=== PATIENT | female | born 1995 | race Caucasian/White ===

== ENCOUNTER 2017-04-04 13:04 | Emergency (ER) | payer OTHER ==
[~2017-04-04] VITALS: Ht 157.5 cm; Wt 71.5 kg
[2017-04-04 13:06] VITALS: Ht 157.5 cm; Wt 71.5 kg
[2017-04-04] MEDS ORDERED: KETOROLAC 30 MG INJ IM STA (14:14)
[2017-04-04] MEDS ORDERED: ONDANSETRON (ODT) 4 MG TAB ODT STA (14:14)
[2017-04-04 14:47] LABS: ADD UMIC YES; UR ASCORBIC ACID NEGATIVE (NEGATIVE); UR BACTERIA FEW /HPF (NONE SEEN); UR BILIRUBIN (Dip) NEGATIVE (NEGATIVE); UR BLOOD (Dip) 2+ mg/dL (NEGATIVE); UR CLARITY SLIGHTLY CLOUDY (CLEAR); UR COLOR YELLOW (YELLOW); UR GLUCOSE (Dip) NEGATIVE (NEGATIVE); UR KETONES (Dip) NEGATIVE (NEGATIVE); UR LEUKOCYTE ESTERASE (Dip) NEGATIVE Leu/ul (NEGATIVE); UR MUCUS MANY /HPF (NONE SEEN); UR NITRITE (Dip) NEGATIVE (NEGATIVE); UR RBC 6 /HPF (0-5); UR SPECIFIC GRAVITY (Dip) 1.036 (1.003-1.030); UR SQUAMOUS EPITHELIAL CELL FEW /HPF (FEW); UR TOTAL PROTEIN (Dip) 1+ mg/dl (NEGATIVE); UR UROBILINOGEN (Dip) 2+ mg/dL (NEGATIVE)
[2017-04-04 14:51] LABS: BASOPHILS % 0.4 % (0.0-2.0); EOSINOPHILS # 0.1 10^3/ul (0.0-0.5); HEMATOCRIT 41.4 % (37.0-47.0); HEMOGLOBIN 14.6 g/dl (12.0-16.0); LYMPHOCYTES # 2.1 10^3/ul (0.8-2.9); LYMPHOCYTES % 23.5 % (15.0-51.0); MEAN CORPUSCULAR HEMOGLOBIN 30.9 pg (29.0-33.0); MEAN CORPUSCULAR HGB CONC 35.3 g/dl (32.0-37.0); MEAN CORPUSCULAR VOLUME 87.5 fl (82.0-101.0); MEAN PLATELET VOLUME 10.4 fl (7.4-10.4); MONOCYTE # 0.6 10^3/ul (0.3-0.9); MONOCYTES % 6.4 % (0.0-11.0); NEUTROPHILS % 68.5 % (39.0-77.0); PLATELET COUNT 256 10^3/UL (140-415); RED BLOOD COUNT 4.73 10^6/ul (4.20-5.40); RED CELL DISTRIBUTION WIDTH 12.1 % (11.5-14.5)
[2017-04-04] MEDS ORDERED: IBUP-1542 PO (15:14)
--- NOTE | 2017-04-04 15:21 | ERD ---
ER Documentation Chief Complaint Date/Time DATE: 04/04/17 TIME: 15:16 Chief Complaint pelvic pain since 11 years old,has fibroids, no vomiting,ist day on menstru HPI Patient is a 21-year-old female with a past medical history of fibroids who presents to the emergency department for concerns of pelvic pain and vaginal bleeding. Patient reports crampy pelvic pain with her periods for the last 10 years. Patient states that she is currently on her period, first day. Patient reports heavy bleeding. She states she uses 6 pads and tampons per day. Patient denies any fevers or chills. Patient does report nausea. Denies any upper abdominal pain, fever, chills, dizziness, diarrhea, chest pain, shortness breath or LOC. Patient denies any recent travel. Patient states that she is seeing a meat passer for symptoms however she is not been placed on any contraceptive medication yet. ROS All systems reviewed and are negative except as per history of present illness. Medications Home Meds Active Scripts Ibuprofen* (Motrin*) 600 Mg Tab, 600 MG PO Q6, #30 TAB Prov:MATIAS HOOKS PA-C 04/04/17 PMhx/Soc History of Surgery: No Anesthesia Reaction: No Hx Neurological Disorder: No Hx Respiratory Disorders: No Hx Cardiac Disorders: No Hx Psychiatric Problems: No Hx Miscellaneous Medical Probl: Yes (FIBRIODS) Hx Alcohol Use: No Hx Substance Use: No Hx Tobacco Use: No Smoking Status: Never smoker Physical Exam Vitals Vital Signs Date Time Temp Pulse Resp B/P Pulse Ox O2 Delivery O2 Flow Rate FiO2 04/04/17 13:06 98.6 85 18 131/80 99 Physical Exam GENERAL: Well-developed, well-nourished female. Appears in no acute distress. Speaking in full sentences. HEAD: Normocephalic, atraumatic. EYES: Pupils are equally reactive bilaterally. EOMs grossly intact. No conjunctival erythema. No Conjunctival pallor ENT: Moist mucous membranes. No uvula deviation. No kissing tonsils. NECK: Supple. No meningismus. Normal range of motion of the neck. LUNG: Clear to auscultation bilaterally. No rhonchi, wheezing, rales or coarse breath sounds. HEART: Regular rate and rhythm. No murmurs, rubs or gallops. ABDOMEN: . Soft, and nondistended. Tender to palpation in the suprapubic region. Positive bowel sounds in all four quadrants. No rebound tenderness, no guarding. (-) McBurney's point tenderness. No CVA tenderness. EXTREMITIES: Equal pulses bilaterally. No peripheral clubbing, cyanosis or edema. No unilateral leg swelling. NEUROLOGIC: Alert and oriented. Moving all four extremities without any difficulty. Normal speech. Steady gait. SKIN: Normal color. Warm and dry. No rashes or lesions. No pallor. Result Diagram: 04/04/17 1419 Results 24 hrs Laboratory Tests Test 04/04/17 14:18 04/04/17 14:19 Urine Color YELLOW Urine Clarity SLIGHTLY CLOUDY Urine pH 5.0 Urine Specific [place] 1.036 Urine Ketones NEGATIVEmg/dL Urine Nitrite NEGATIVEmg/dL Urine Bilirubin NEGATIVEmg/dL Urine Urobilinogen 2+mg/dL Urine Leukocyte Esterase NEGATIVELeu/ul Urine Microscopic RBC 6/HPF Urine Microscopic WBC 4/HPF Urine Squamous Epithelial Cells FEW/HPF Urine Bacteria FEW/HPF Urine Mucus MANY/HPF Urine Hemoglobin 2+mg/dL Urine Glucose NEGATIVEmg/dL Urine Total Protein 1+mg/dl White Blood Count 9.010^3/ul Red Blood Count 4.7310^6/ul Hemoglobin 14.6g/dl Hematocrit 41.4% Mean Corpuscular Volume 87.5fl Mean Corpuscular Hemoglobin 30.9pg Mean Corpuscular Hemoglobin Concent 35.3g/dl Red Cell Distribution Width 12.1% Platelet Count 71750^3/UL Mean Platelet Volume 10.4fl Neutrophils % 68.5% Lymphocytes % 23.5% Monocytes % 6.4% Eosinophils % 1.0% Basophils % 0.4% Nucleated Red Blood Cells % 0.0/100WBC Neutrophils # (Manual) 6.110^3/ul Lymphocytes # 2.110^3/ul Monocytes # 0.610^3/ul Eosinophils # 0.110^3/ul Basophils # 0.010^3/ul Nucleated Red Blood Cells # 0.010^3/ul Current Medications Medications (Trade) Dose Ordered Sig/Hernan Route PRN Reason Start Time Stop Time Status Last Admin Dose Admin Ketorolac Tromethamine (Toradol) 30 mg ONCE STAT IM 04/04/17 14:14 04/04/17 14:16 DC 04/04/17 14:44 Ondansetron HCl (Zofran Odt) 4 mg ONCE STAT ODT 04/04/17 14:14 04/04/17 14:16 DC 04/04/17 14:43 Procedures/MDM ED COURSE: The patient was stable throughout ED course. I kept the patient and/or family informed of laboratory and diagnostic imaging results throughout the ED course. DIAGNOSTIC IMAGING: Read by radiologist. DIAGNOSTIC IMAGING REPORT Patient: AMANDA MCCOY : 1995 Age: 21 Sex: F MR #: [id number] DOS: 04/04/17 1414 Ordering MD: MATIAS HOOKS PA-C Location: [facility] Room/Bed: PROCEDURE: US Pelvis. CLINICAL INDICATION: Vaginal bleeding TECHNIQUE: Multiple sonographic images of the pelvis were obtained utilizing a transabdominal and endovaginal technique. The images were reviewed on a PACS workstation. COMPARISON: None available FINDINGS: Uterus: Normal in size, contour and echogenicity with a fundal fibroid measuring 2.3 x 1.7 cm . Size is estimated at 7.5 x 4.5 x 4.8 cm. Cervix: No abnormalities of significance are seen. Endometrium: Normal in thickness; 4.3 mm. Right ovary / adnexa: Normal in size estimated at 2.8 x 1.4 x 2.5 cm. No evidence for masses, normal blood flow on Doppler interrogation. Left ovary/adnexa: Normal in size estimated at 2.9 x 1.6 x 5.3 cm. No evidence for solid masses, normal blood flow on Doppler interrogation. Cul-de-sac: No evidence of free fluid. RPTAT: HSM IMPRESSION: 1. Fundal fibroid measuring 2.3 cm. 2. Otherwise unremarkable exam. .Harvinder Shi MD, MD Date Time Electronically viewed and signed by .Harvinder Shi MD, MD on 04/04/2017 15:40 .M/ CC: MATIAS HOOKS PA-C MEDICATIONS GIVEN: Toradol IM Patient tolerated medication well with no adverse reactions. Patient reported improvement in pain. MEDICAL DECISION MAKING: This is a 21-year-old female with past medical history fibers who presents with pelvic pain and vaginal bleeding. Patient is currently on the first day of her period and reports severe cramping pain.. Vital signs were reviewed. Patient was afebrile. Patient was hemodynamically stable. Urine test was negative. CBC showed no evidence of systemic infection or severe anemia. Urine was negative for acute infection. Pelvic US showed Fundal fibroid measuring 2.3 cm. Normal blood flow in L and R ovaries. Given these findings, the patient's presentation is most consistent with fibroids and menorrhagia. I have a much lower clinical concern for ectopic , ovarian torsion, PID, tubo- ovarian abscess, nephrolithiasis, pyelonephritis, UTI, appendicitis, diverticulitis, bowel obstruction. PRESCRIPTIONS: Ibuprofen DISCHARGE: At this time, patient is stable for discharge and outpatient management. I have instructed the patient to follow-up with his/her primary care physician/OBGYN in 1-2 days. I have discussed with the patient the possibility of needing to see a specialist for further workup and diagnostic studies if the pain persists. I have instructed the patient to promptly return to the ER at any time for any new or worsening symptoms including increased pain, nausea, vomiting, vaginal bleeding, weakness or fever. The patient and/or family expressed understanding of and agreement with this plan. All questions were answered. Home care instructions were provided. Departure Diagnosis: Primary Impression: Fibroids Uterine leiomyoma location: unspecified location Qualified Code: D25.9 - Uterine leiomyoma, unspecified location Additional Impression: Menorrhagia Menorrahagia type: with irregular cycle Qualified Code: N92.1 - Menorrhagia with irregular cycle Condition: Stable Patient Instructions: What Are Fibroids? Referrals: [facility] WORK[facility] REFERRAL LIST Additional Instructions: Call your primary care doctor TOMORROW for an appointment during the next 1-2 days.See the doctor sooner or return here if your condition worsens before your appointment time. MATIAS HOOKS PA-C Apr 04, 2017 15:21 MATIAS HOOKS PA-C Apr 04, 2017 15:21
--- NOTE | 2017-04-04 15:40 | RADRPT ---
PROCEDURE: US Pelvis. CLINICAL INDICATION: Vaginal bleeding TECHNIQUE: Multiple sonographic images of the pelvis were obtained utilizing a transabdominal and endovaginal technique. The images were reviewed on a PACS workstation. COMPARISON: None available FINDINGS: Uterus: Normal in size, contour and echogenicity with a fundal fibroid measuring 2.3 x 1.7 cm . Size is estimated at 7.5 x 4.5 x 4.8 cm. Cervix: No abnormalities of significance are seen. Endometrium: Normal in thickness; 4.3 mm. Right ovary / adnexa: Normal in size estimated at 2.8 x 1.4 x 2.5 cm. No evidence for masses, norm al blood flow on Doppler interrogation. Left ovary/adnexa: Normal in size estimated at 2.9 x 1.6 x 5.3 cm. No evidence for solid masses, no rmal blood flow on Doppler interrogation. Cul-de-sac: No evidence of free fluid. RPTAT: HSM IMPRESSION: 1. Fundal fibroid measuring 2.3 cm. 2. Otherwise unremarkable exam. .Harvinder Shi MD, MD Date Time Electronically viewed and signed by .Harvinder Shi MD, MD on 04/04/2017 15:40 .M/
== END 2017-04-04 16:07 | disposition home or self-care (01) ==
LOC: FTE 13:04
DX: D25.9 Leiomyoma of uterus, unspecified (principal); N92.1 Excessive and frequent menstruation with irregular cycle
CPT/HCPCS: 76830; 76856; 81001; 85025; 96372; J1885; Z7502; Z7610

== ENCOUNTER 2017-06-23 14:17 | Emergency (ER) | payer OTHER ==
[~2017-06-23] VITALS: Ht 160 cm; Wt 80.0 kg
[~2017-06-23 14:17] MED LIST: IBUP-1542 PO
[2017-06-23 14:19] VITALS: Ht 160 cm; Wt 80.0 kg
[2017-06-23] MEDS ORDERED: KETOROLAC 60 MG INJ IM STA (15:12)
[2017-06-23] MEDS ORDERED: ONDANSETRON (ODT) 4 MG TAB ODT STA (15:14)
--- NOTE | 2017-06-23 16:02 | RADRPT ---
PROCEDURE: US Pelvis. CLINICAL INDICATION: Pelvic pain. TECHNIQUE: The pelvis was evaluated with transabdominal and transvaginal sonography in the axial a nd sagittal planes. COMPARISON: No prior study is available for comparison. FINDINGS: Uterus: 7.8 x 3.8 x 5.5 cm. Endometrium: 3.6 mm. Right ovary: 3.8 x 1.9 x 2.6 cm. Left ovary: 3.1 x 2.2 x 2.4 cm. Uterine masses: There is a fundal myometrial fibroid measuring 4.6 x 1.5 x 1.9 cm. There is no other uterine mass. Ovarian masses: None. Color Doppler and pulsed Doppler sonography demonstrate normal flow to the ova johnathan. Other pelvic masses: None. Free fluid: None. IMPRESSION: 1. Fundal myometrial fibroid measuring 4.6 x 1.5 x 1.9 cm. 2. Otherwise normal pelvic ultrasound. RPTAT: QQ .Lm Cheatham MD, MD Date Time Electronically viewed and signed by .Lm Cheatham MD, on 06/23/2017 16:02 .R/
[2017-06-23 16:35] LABS: ADD UMIC YES; UR ASCORBIC ACID NEGATIVE (NEGATIVE); UR BILIRUBIN (Dip) NEGATIVE (NEGATIVE); UR BLOOD (Dip) 3+ mg/dL (NEGATIVE); UR CLARITY CLEAR (CLEAR); UR COLOR YELLOW (YELLOW); UR GLUCOSE (Dip) NEGATIVE (NEGATIVE); UR KETONES (Dip) NEGATIVE (NEGATIVE); UR LEUKOCYTE ESTERASE (Dip) NEGATIVE Leu/ul (NEGATIVE); UR NITRITE (Dip) NEGATIVE (NEGATIVE); UR RBC 26 /HPF (0-5); UR SPECIFIC GRAVITY (Dip) 1.016 (1.003-1.030); UR TOTAL PROTEIN (Dip) NEGATIVE (NEGATIVE); UR UROBILINOGEN (Dip) NEGATIVE (NEGATIVE)
[2017-06-23 17:20] LABS: BASOPHIL # 0.1 10^3/ul (0.0-0.1); BASOPHILS % 0.4 % (0.0-2.0); EOSINOPHILS # 0.1 10^3/ul (0.0-0.5); HEMATOCRIT 39.3 % (37.0-47.0); HEMOGLOBIN 13.7 g/dl (12.0-16.0); LYMPHOCYTES # 2.1 10^3/ul (0.8-2.9); LYMPHOCYTES % 16.3 % (15.0-51.0); MEAN CORPUSCULAR HEMOGLOBIN 30.6 pg (29.0-33.0); MEAN CORPUSCULAR HGB CONC 34.9 g/dl (32.0-37.0); MEAN CORPUSCULAR VOLUME 87.7 fl (82.0-101.0); MEAN PLATELET VOLUME 10.2 fl (7.4-10.4); MONOCYTE # 0.8 10^3/ul (0.3-0.9); MONOCYTES % 6.2 % (0.0-11.0); NEUTROPHIL # 9.6 10^3/ul (1.6-7.5); NEUTROPHILS % 75.8 % (39.0-77.0); PLATELET COUNT 279 10^3/UL (140-415); RED BLOOD COUNT 4.48 10^6/ul (4.20-5.40); RED CELL DISTRIBUTION WIDTH 12.2 % (11.5-14.5); WHITE BLOOD COUNT 12.7 10^3/ul (4.8-10.8)
[2017-06-23 17:40] LABS: ALBUMIN 4.6 g/dl (3.3-4.9); ALBUMIN/GLOBULIN RATIO 1.39; BILIRUBIN,INDIRECT 0.2 mg/dl (0-1.1); BILIRUBIN,TOTAL 0.2 mg/dl (0.2-1.3); CALCIUM 9.3 mg/dl (8.4-10.2); CREATININE 0.7 mg/dl (0.44-1.00); POTASSIUM 4.1 mmol/L (3.5-5.1); TOTAL PROTEIN 7.9 g/dl (6.1-8.1)
[2017-06-23] MEDS ORDERED: IBUP-1542 PO (18:26)
--- NOTE | 2017-06-23 19:02 | ERD ---
ER Documentation Chief Complaint Chief Complaint PELVIC PAIN HPI 21-year-old female patient with no significant past medical history presents to the ED complaining of mid lower pelvic pain during her menstruation that started 2 days ago and worsened today. Reports that she usually has these episodes of pain due to her fibroids and describes as sharp. Rates the pain a 4 out of 10. States that the pain is nonradiating and is intermittent. Reports that she has had heavier during her menstruation. Denies any dysuria, urgency, frequency, nausea, vomiting, diarrhea, fever, chest pain, shortness of breath, chills. ROS All systems reviewed and are negative except as per history of present illness. Medications Home Meds Active Scripts Ibuprofen* (Motrin*) 600 Mg Tab, 600 MG PO Q6, #30 TAB Prov:JOSE MEDELLIN PA-C 06/23/17 Ibuprofen* (Motrin*) 600 Mg Tab, 600 MG PO Q6, #30 TAB Prov:MATIAS HOOKS PA-C 04/04/17 Allergies Allergies: Coded Allergies: No Known Allergy (Unverified , 06/23/17) PMhx/Soc History of Surgery: No Anesthesia Reaction: No Hx Neurological Disorder: No Hx Respiratory Disorders: No Hx Cardiac Disorders: No Hx Psychiatric Problems: No Hx Miscellaneous Medical Probl: Yes (FIBRIODS) Hx Alcohol Use: No Hx Substance Use: No Hx Tobacco Use: No Physical Exam Vitals Vital Signs Date Time Temp Pulse Resp B/P Pulse Ox O2 Delivery O2 Flow Rate FiO2 06/23/17 14:19 98.1 85 18 134/82 99 Physical Exam Const: [id number], well-nourished. In no acute distress. Head: Atraumatic, normocephalic Eyes: Normal Conjunctiva without injection. No purulent discharge. ENT: Normal external ear, nose. Moist oropharynx without tonsillar exudates. Non -erythematous pharynx. Uvula midline. No drooling. No trismus. Neck: No cervical midline tenderness. Full range of motion. No meningismus. No cervical lymphadenopathy. No JVD. Resp: Clear to auscultation bilaterally. No wheezing, rhonchi, rales, or crackles. No accessory muscle use. No retractions. Cardio: Regular rate and rhythm. No murmurs, rubs or gallops. Abd: Soft, mid lower pelvic pain, non distended. Normal bowel sounds. No palpable masses. No rebound tenderness. No guarding. Negative McBurney's point. Negative psoas sign. Negative obturator sign. Skin: No petechiae or rashes Back: No midline tenderness. No CVA tenderness. Ext: No cyanosis, or edema. Neur: Awake and alert. Normal gait. Normal coordination. Psych: Normal Mood and Affect Result Diagram: 06/23/17 1710 06/23/17 1710 Results 24 hrs Laboratory Tests Test 06/23/17 15:40 06/23/17 17:10 Urine Color YELLOW Urine Clarity CLEAR Urine pH 6.0 Urine Specific [place] 1.016 Urine Ketones NEGATIVEmg/dL Urine Nitrite NEGATIVEmg/dL Urine Bilirubin NEGATIVEmg/dL Urine Urobilinogen NEGATIVEmg/dL Urine Leukocyte Esterase NEGATIVELeu/ul Urine Microscopic RBC 26/HPF Urine Microscopic WBC 0/HPF Urine Hemoglobin 3+mg/dL Urine Glucose NEGATIVEmg/dL Urine Total Protein NEGATIVEmg/dl White Blood Count 12.710^3/ul Red Blood Count 4.4810^6/ul Hemoglobin 13.7g/dl Hematocrit 39.3% Mean Corpuscular Volume 87.7fl Mean Corpuscular Hemoglobin 30.6pg Mean Corpuscular Hemoglobin Concent 34.9g/dl Red Cell Distribution Width 12.2% Platelet Count 93658^3/UL Mean Platelet Volume 10.2fl Neutrophils % 75.8% Lymphocytes % 16.3% Monocytes % 6.2% Eosinophils % 1.0% Basophils % 0.4% Nucleated Red Blood Cells % 0.0/100WBC Neutrophils # 9.610^3/ul Lymphocytes # 2.110^3/ul Monocytes # 0.810^3/ul Eosinophils # 0.110^3/ul Basophils # 0.110^3/ul Nucleated Red Blood Cells # 0.010^3/ul Sodium Level 141mmol/L Potassium Level 4.1mmol/L Chloride Level 102mmol/L Carbon Dioxide Level 28mmol/L Anion Gap 15 Blood Urea Nitrogen 10mg/dl Creatinine 0.70mg/dl Glucose Level 90mg/dl Calcium Level 9.3mg/dl Total Bilirubin 0.2mg/dl Direct Bilirubin 0.00mg/dl Indirect Bilirubin 0.2mg/dl Aspartate Amino Transf (AST/SGOT) 20IU/L Alanine Aminotransferase (ALT/SGPT) 29IU/L Alkaline Phosphatase 80IU/L Total Protein 7.9g/dl Albumin 4.6g/dl Globulin 3.30g/dl Albumin/Globulin Ratio 1.39 Lipase 27U/L Current Medications Medications (Trade) Dose Ordered Sig/Hernan Route PRN Reason Start Time Stop Time Status Last Admin Dose Admin Ketorolac Tromethamine (Toradol) 60 mg ONCE STAT IM 06/23/17 15:12 06/23/17 15:14 DC 06/23/17 15:57 Ondansetron HCl (Zofran Odt) 4 mg ONCE STAT ODT 06/23/17 15:14 06/23/17 15:15 DC 06/23/17 15:56 Procedures/MDM 21-year-old female patient with a past medical history of fibroids presents to the ED complaining of mid lower pelvic pain that started 2 days ago and worsened today. Patient is afebrile and nontoxic-appearing. Patient has normal vital signs. Patient was further worked up with CBC, CMP, lipase, UA, pelvic ultrasound. Patient's pain and symptoms have improved after treatment with Toradol. CBC: No leukocytosis. No e/o of systemic infection. No e/o anemia. CMP: No e/o severe acidosis, alkalosis, renal failure, diabetic ketoacidosis, liver disease Lipase within normal limits. Urine: No leukocyte esterase, no nitrites, no hematuria. Urine : Negative PROCEDURE: US Pelvis. CLINICAL INDICATION: Pelvic pain. TECHNIQUE: The pelvis was evaluated with transabdominal and transvaginal sonography in the axial and sagittal planes. COMPARISON: No prior study is available for comparison. FINDINGS: Uterus: 7.8 x 3.8 x 5.5 cm. Endometrium: 3.6 mm. Right ovary: 3.8 x 1.9 x 2.6 cm. Left ovary: 3.1 x 2.2 x 2.4 cm. Uterine masses: There is a fundal myometrial fibroid measuring 4.6 x 1.5 x 1.9 cm. There is no other uterine mass. Ovarian masses: None. Color Doppler and pulsed Doppler sonography demonstrate normal flow to the ovaries. Other pelvic masses: None. Free fluid: None. IMPRESSION: 1. Fundal myometrial fibroid measuring 4.6 x 1.5 x 1.9 cm. 2. Otherwise normal pelvic ultrasound. Patient has a fundal myometrial fibroid measuring to 4.61.51.9 cm. Patient's fibroid has grown since her last visit in March 2017 and she was strictly instructed to follow-up with an SENIOR OFFICE ASSISTANT for further evaluation and treatment. Low suspicion for ectopic , ovarian torsion, gastritis, GERD, peptic ulcer disease, cholecystitis, choledocholithiasis, cholangitis, pancreatitis, appendicitis, bowel obstruction, ileus, volvulus, nephrolithiasis, pyelonephritis, hepatitis, perforated viscus, diverticulitis, strangulated/ incarcerated hernia, DKA, acute abdomen, mesenteric ischemia or other emergent conditions. Discharge medications: Ibuprofen Follow up with primary care physician in 1-2 days for referral to an SENIOR OFFICE ASSISTANT. Instructed patient to return to the ED sooner for any worsening symptoms. Patient's questions were answered. Patient understood and agreed with discharge plan. Patient discharged stable. Departure Diagnosis: Primary Impression: Pelvic pain Condition: Stable Patient Instructions: What Are Fibroids? Referrals: [facility], [facility] YOU HAVE RECEIVED A MEDICAL SCREENING EXAM AND THE RESULTS INDICATE THAT YOU DO NOT HAVE A CONDITION THAT REQUIRES URGENT TREATMENT IN THE EMERGENCY DEPARTMENT. FURTHER EVALUATION AND TREATMENT OF YOUR CONDITION CAN WAIT UNTIL YOU ARE SEEN IN YOUR DOCTORS OFFICE WITHIN THE NEXT 1-2 DAYS. IT IS YOUR RESPONSIBILITY TO MAKE AN APPOINTMENT FOR FOLOW-UP CARE. IF YOU HAVE A PRIMARY DOCTOR --you should call your primary doctor and schedule an appointment IF YOU DO NOT HAVE A PRIMARY DOCTOR YOU CAN CALL OUR PHYSICIAN REFERRAL HOTLINE AT IF YOU CAN NOT AFFORD TO SEE A PHYSICIAN YOU CAN CHOSE FROM THE FOLLOWING [facility], [facility] [address] [facility] [address] [facility] [address] [facility] [address] [facility] [address] [facility] [facility]. [address] [facility]. [facility] YOU HAVE RECEIVED A MEDICAL SCREENING EXAM AND THE RESULTS INDICATE THAT YOU DO NOT HAVE A CONDITION THAT REQUIRES URGENT TREATMENT IN THE EMERGENCY DEPARTMENT. FURTHER EVALUATION AND TREATMENT OF YOUR CONDITION CAN WAIT UNTIL YOU ARE SEEN IN YOUR DOCTORS OFFICE WITHIN THE NEXT 1-2 DAYS. IT IS YOUR RESPONSIBILITY TO MAKE AN APPOINTMENT FOR FOLOW-UP CARE. IF YOU HAVE A PRIMARY DOCTOR --you should call your primary doctor and schedule and appointment IF YOU DO NOT HAVE A PRIMARY DOCTOR YOU CAN CALL OUR PHYSICIAN REFERRAL HOTLINE AT . IF YOU CAN NOT AFFORD TO SEE A PHYSICIAN YOU CAN CHOSE FROM THE FOLLOWING [facility] INSTITUTIONS: [facility] [address] [place] [address] [facility] [address] [place] [address] [facility] [address] [place] [address] [facility]ENT C[facility]/SPECIALTIES SENIOR OFFICE [place] [address] [facility] [address] [place] [address] OFFICE FAX RANDALL PERALTA [address] [place] [address] [address] [facility] [address] [place] [address] [address]ANG [address] [facility], [address], [facility] [address] [address] [address] [place] [address] [facility] [address] [place] [address] [phone] [address] [facility] [address] - [address]RES [address], [facility] [address] [address] [address] [facility]. [address], [facility] [place] [address] [address] [address] [place] [address] [facility] Hours: 8:00 am - 5:00 pm Additional Instructions: Call your primary care doctor TOMORROW for an appointment during the next 2-3 days.See the doctor sooner or return here if your condition worsens before your appointment time. JOSE MEDELLIN PA-C Jun 23, 2017 19:02
== END 2017-06-23 18:36 | disposition home or self-care (01) ==
LOC: FTE 14:17
DX: R10.2 Pelvic and perineal pain (principal)
CPT/HCPCS: 36415; 76830; 76856; 80053; 81001; 83690; 85025; 96372; J1885; Z7502; Z7610

== ENCOUNTER 2017-09-17 22:18 | Emergency (ER) | END 2017-09-18 04:43 | disposition home or self-care (01) ==

== ENCOUNTER 2018-02-06 20:29 | Emergency (ER) | END 2018-02-06 23:29 | disposition home or self-care (01) ==

== ENCOUNTER 2018-03-28 14:28 | Inpatient (IN) | END 2018-03-30 12:26 | disposition home or self-care (01) | DRG 781 ==